=== PATIENT | female | born 1950 | race Hispanic/Latino ===

== ENCOUNTER → 2019-03-28 | Outpatient (CLI) | payer OTHER ==
--- NOTE | 2019-02-07 12:17 | NUR ---
PT WAS A NO SHOW FOR THIS DATE OF SERVICE
[~2019-03-28] VITALS: Ht 149.9 cm; Wt 77.6 kg
[~2019-03-28] MED LIST: ASPI-1026 PO; ATOR40TA71 PO; FURO20TA4 PO; HYDR-4154 PO; INSU100I26 SQ; LINA5TAB PO; REGADENOSON 0.4 MG/5 ML PF SYG IVP SCH; iron PO; vitamin d2 PO
== END | disposition home or self-care (01) ==
LOC: SHCH 07:58
PROVIDERS: ATTEND Internal Medicine Cardiovascular Disease
DX: R94.31 Abnormal electrocardiogram [ECG] [EKG] (principal); Z01.810 Encounter for preprocedural cardiovascular examination
CPT/HCPCS: 78452; 93017; 96374; A9500 ×2; J2785

== ENCOUNTER 2019-04-29 07:51 | Day surgery (SDC) | payer OTHER ==
[2019-04-26 15:45] LABS: BASOPHILS % (AUTO) 0.7 % (0.0-5.0); EOSINOPHILS % (AUTO) 7.5 % (0.0-8.0); HEMATOCRIT 37.6 % (36-48); LYMPHOCYTES % (AUTO) 14.7 % (21.0-51.0); MEAN CORPUSCULAR HEMOGLOBIN 33.2 pg (27.0-33.0); MEAN CORPUSCULAR HGB CONC 32.2 g/dL (32.0-36.0); MONOCYTES % (AUTO) 5.9 % (3.0-13.0); NEUTROPHILS % (AUTO) 70.9 % (40.0-77.0); PLATELET COUNT (AUTO) 256 K/uL (130-400); RED BLOOD CELL COUNT(AUTO) 3.65 MIL/uL (4.00-5.50); RED CELL DISTRIBUTION WIDTH 14.8 % (11.0-15.5); WHITE BLOOD COUNT (AUTO) 7.7 K/uL (4.8-10.8)
[2019-04-26 15:51] VITALS: BP 162/82
[2019-04-26 15:53] LABS: CREATININE 3.2 mg/dL (0.5-1.5); POTASSIUM 3.6 mmol/L (3.5-5.1)
[2019-04-26 15:54] LABS: APPEARANCE,URINE Clear (CLEAR); BILIRUBIN,URINE Negative (NEGATIVE); COLOR,URINE Yellow (YELLOW); GLUCOSE, URINE (UA) 250 mg/dL (NEGATIVE); KETONES,URINE Negative (NEGATIVE); LEUKOCYTE ESTERASE ,URINE Negative (NEGATIVE); NITRATE,URINE Negative (NEGATIVE); OCCULT BLOOD,URINE Trace (NEGATIVE); PROTEIN,URINE >=1000 mg/dL (NEGATIVE)
[2019-04-26 15:58] LABS: INR 0.94 (0.85-1.15); PROTHROMBIN TIME 9.9 SEC (9.6-11.6)
[2019-04-26 16:16] LABS: BACTERIA,URINE Few /HPF (None Seen); RBC,URINE 0-1 /HPF (0-1)
--- NOTE | 2019-04-28 16:00 | NUR ---
reported vacuum kettle cook level of 3.2, urine with protein>1000, glucose 250, wbc 2-5,few bacteria and ur squam epi 6-10, no new orders okay to proceed.
[2019-04-29] VITALS (9 sets, daily range): BP systolic 108–192; BP diastolic 45–82
[~2019-04-29] VITALS: Ht 152.4 cm; Wt 77.7 kg
[~2019-04-29 07:51] MED LIST changes: +INSLAN SQ; -INSU100I26 SQ; -REGADENOSON 0.4 MG/5 ML PF SYG IVP SCH; +vitamin d2; -vitamin d2 PO
[2019-04-29] MEDS ORDERED: SODIUM CHLORIDE 0.9% 1000ML 1,000 ML IV ONE (08:13)
--- NOTE | 2019-04-29 08:30 | NUR ---
PRE-PROCEDURE RECEIVED FROM HOME TO DAY 16 FOR SCHEDULED LHC. AWAKE IN NO ACUTE DISTRESS. CONNECTED TO CONTINUOUS CARDIOPULMONARY MONITORING. SIDE RAILS UP X2, BED IN LOWEST POSITION, AND CALL LIGHT W/IN REACH. PMHX: DM, DIALYSIS SINCE 10/25, PERMACATH TO RU CHEST WALL, HTN. HAS PROVIDER AT HOME THAT HELPS WITH COOKING AND CLEANING.
--- NOTE | 2019-04-29 09:34 | NUR ---
F/U B/P 177/72
[2019-04-29] MEDS ORDERED: CALC-1009 PO (09:42)
[2019-04-29] MEDS ORDERED: METO5TAB7 PO (09:42)
[2019-04-29] MEDS ORDERED: CHOL200059 PO (09:42)
--- NOTE | 2019-04-29 10:52 | NUR ---
HTN DR. STEEL NOTIFIED OF B/P 177/72. ORDER RECEIVED FOR HYDRALAZINE 10MG IVP X1.
[2019-04-29] MEDS ORDERED: HYDRALAZINE HCL 20 MG/ML VIAL IV SCH (11:00)
--- NOTE | 2019-04-29 11:15 | NUR ---
HTN HYDRALAZINE 10MG IV GIVEN ORDERED.
--- NOTE | 2019-04-29 11:39 | NUR ---
F/U HTN B/P 144/60.
[2019-04-29] MEDS ORDERED: BIVALIRUDIN 250 MG/VIAL IV ONE (13:16)
[2019-04-29] MEDS ORDERED: FENTANYL CITRATE PF 50 MCG/1 ML 2ML VIAL ONE (13:17)
[2019-04-29] MEDS ORDERED: IOHEXOL-350 50ML VIAL IV ONE (13:17)
[2019-04-29] MEDS ORDERED: NITROGLYCERIN 2 MG/VIAL VIAL IV ONE (13:17)
[2019-04-29] MEDS ORDERED: IOHEXOL 350 MG/ML 100ML INFUS..BTL IV ONE (13:17)
[2019-04-29] MEDS ORDERED: MIDAZOLAM HCL 1 MG/ML 2ML VIAL ONE (13:17)
[2019-04-29] MEDS ORDERED: LIDOCAINE HCL 2% 20ML ONE (13:17)
--- NOTE | 2019-04-29 13:20 | NUR ---
PROCEDURE TRANSFERRED TO FIRST OFFICER AND FLIGHT INSTRUCTOR VIA BED. AWAKE IN NO ACUTE DISTRESS.
[2019-04-29] MEDS ORDERED: SODIUM BICARB 50MEQ 50ML VIAL ONE (13:37)
--- NOTE | 2019-04-29 14:00 | NUR ---
REPORT REPORT GIVEN TO MISSY KHAN USING SBAR. VERBALIZED UNDERSTANDING. PT CURRENTLY IN PROCEDURE.
[2019-04-29] MEDS ORDERED: LABETALOL HCL 5 MG/ML 20ML VIAL IV ONE (14:10)
[2019-04-29] MEDS ORDERED: HYDRALAZINE HCL 20 MG/ML VIAL ONE (14:17)
--- NOTE | 2019-04-29 17:15 | NUR ---
PT LEFT VIA WHEELCHAIR IN PVT CAR WITH D/C INSTRUCTIONS GIVEN TO WITH F/U APPT FOR DR. LORA AND DR. STEEL. V/S STABLE NO COMPLICATIONS UPON D/C. DRESSING DRY AND INTACT NO HEMATOMA, NO BLEEDING NO PAIN. DP INTACT BILATERAL.
== END 2019-04-29 17:15 | disposition home or self-care (01) ==
LOC: DAH 07:51
PROVIDERS: ATTEND Internal Medicine Cardiovascular Disease
DX: I25.119 Atherosclerotic heart disease of native coronary artery with unspecified angina pectoris (principal); I70.1 Atherosclerosis of renal artery; E11.22 Type 2 diabetes mellitus with diabetic chronic kidney disease; I13.2 Hypertensive heart and chronic kidney disease with heart failure and with stage 5 chronic kidney disease, or end stage renal disease; N18.6 End stage renal disease; I50.33 Acute on chronic diastolic (congestive) heart failure; Z99.2 Dependence on renal dialysis; Z98.890 Other specified postprocedural states; Z82.49 Family history of ischemic heart disease and other diseases of the circulatory system; Z79.82 Long term (current) use of aspirin; Z79.4 Long term (current) use of insulin; Z79.899 Other long term (current) drug therapy
CPT/HCPCS: 36415; 71045; 75716; 80048; 81001; 82948 ×3; 85025; 85610; 85730; 93005; 93458; A4215; A4216; A4221; A4222; A4223 ×3; A4606; A4663; A6260; C1760; C1769 ×2; C1894 ×2; J0360; J1644; J3490 ×4; J7030; Q9965; Q9967 ×2; J0583; J2250; J3010